=== PATIENT | male | born 1995 ===

== ENCOUNTER 2019-07-08 16:36 | Emergency (ER) | payer OTHER ==
[~2019-07-08] VITALS: Ht 182.9 cm; Wt 72.6 kg
== END 2019-07-08 18:49 | disposition home or self-care (01) ==
LOC: ER 16:36
DX: S33.5XXA Sprain of ligaments of lumbar spine, initial encounter (principal); V49.9XXA Car occupant (driver) (passenger) injured in unspecified traffic accident, initial encounter; Y93.89 Activity, other specified; Y92.488 Other paved roadways as the place of occurrence of the external cause; Y99.8 Other external cause status